=== PATIENT | male | born 1945 | race Hispanic/Latino ===

== ENCOUNTER 2018-05-16 09:13 | Day surgery (SDC) | payer MEDICARE ==
[2018-05-16] MEDS ORDERED: DIPRIVAN 10 MG/ML IV ONE ×3 (09:56)
[2018-05-16] MEDS ORDERED: NACL 0.9% 1000 ML 1,000 ML IV SCH (10:00)
[2018-05-16] MEDS ORDERED: WATER FOR IRRIG STERILE IR ONE (10:18)
--- NOTE | 2018-05-16 11:08 | Procedure Note ---
Date of procedure: 05/16/18 Pre-op diagnosis: GERD/ H/O Colon Polyps Post-op diagnosis: other (Duodenal Ulcer/ Duodenitis/Duoenal Erosion/Gastritis/ Esophagitis/ Proximal Colon Growth/ Transverse Colon Polyp (removed by snare excision)/ Moderate, Left Colon diverticular disease/ Minor,Internal Hemorrhoid) Procedure: EGD with Biopsy/ Colonoscopy with Snare Excision with Cold biopsy and Shelli Ink Injection (3 cc) Anesthesia: MAC Surgeon: ANTHONY ALDRICH Estimated blood loss: minimal Pathology: list Specimen disposition: to lab Condition: stable Disposition: same day (Treat with PPI. Avoid aspirin and NSAID. Check labs for CEA, Vitamin B12 and Folate. follow up in 1 to 2 weeks ([phone]).)
[2018-05-16 11:36] VITALS: BP 151/70
--- NOTE | 2018-05-16 12:30 | Operative Report ---
PROCEDURE: EGD with biopsy INDICATIONS: A 72-year-old white male with a prior history of anemia, which appears to be improved at present. EGD was done because he has been having some GERD symptoms to assess for the severity of his esophagitis and to check for any associated upper GI pathology. DESCRIPTION OF PROCEDURE: Procedure was done after getting informed consent with MAC anesthesia. Instrument was passed through the hypopharynx into the esophagus, which showed mild to moderate distal erosive esophagitis. Biopsy was done from the distal esophagus. Stomach showed gastritis. Biopsy was done from the gastric body antrum as well as the angle incisura for H. pylori and from the gastric body for atrophic gastritis. The pylorus was patent. The duodenum and the bulb showed a small duodenal ulcer as well as duodenitis and duodenal erosion. There was minimal bleeding from the biopsy sites and no complications associated with the procedure. ASSESSMENT: Gastroesophageal reflux disease symptoms, mild to moderate distal erosive esophagitis, gastritis, duodenal ulcer, duodenitis, duodenal erosion. Plan is treat the patient with PPI, have the patient avoid aspirin and aspirin-related products for the next few days and have the patient follow up in the office in 1-2 weeks' time. Vitamin B12 and folate level will also be done. RN, Breana Michelle was in the room throughout the entirety of the procedure since the patient also has a prior history of colon polyp. Colonoscopy will also be done for further assessment during this hospital visit. JOB# [id number] JOSE/MAURI
--- NOTE | 2018-05-16 12:41 | Operative Report ---
PROCEDURE: Colonoscopy with snare polypectomy and biopsy as well as Shelli ink injection of 3 mL done in the patient by the name of the patient. INDICATIONS: This is a 72-year-old white male with a prior history of anemia, who had an EGD done that showed presence of a small duodenal ulcer as well as duodenitis and duodenal erosion with associated gastritis and [id number] distal erosive esophagitis. Colonoscopy was done since the patient had a prior history of colon polyp to make sure that there was not any recurrence of any polyps. DESCRIPTION OF PROCEDURE: Procedure was done after getting informed consent with MAC anesthesia. Initial rectal exam was unremarkable. Instrument was passed through the rectum onto the cecum, which was identified with ileocecal valve and the appendiceal orifice. Visualization was fair to good. In the proximal colon slightly distal to the cecum there was growth noted in that area. Photodocumentation biopsies were also obtained and 3 mL of Shelli ink was injected to localize that spot in the colon, a little proximal and distal to the growth. The remaining part of the proximal colon and transverse colon showed normal mucosa. Moderate left colon diverticular disease was noted. In the transverse colon and the mid transverse colon there was a 10 mm polyp noted on a stalk that was removed by snare excision and retrieved. The remaining part of the transverse colon other than for that solitary polyp in the mid transverse colon did not show any other significant pathology. There was moderate left colon diverticular disease and mild internal hemorrhoids noted in the rectum on the retroverted view. There was minimal bleeding from the polypectomy site and the biopsy sites and no complications associated with the procedure. ASSESSMENT: 1. Prior history of colon polyp. 2. Transverse colon polyp on a stalk that was snare excised. 3. Proximal colon growth biopsy done to rule out for any neoplastic lesion. 4. Moderate left colon diverticular disease. 5. Minor internal hemorrhoids. Again, there was minimal bleeding from the biopsy sites and polypectomy site. No complications associated with the procedure. The patient will be asked to avoid aspirin and aspirin-related products for the next few days and follow up in the office in 1-2 weeks' time. He will be encouraged to take fiber supplements and also treated with PPI because of the upper GI findings duodenal ulcer and duodenitis. Await for the biopsy results. He will have a CEA level as a tumor marker as well as vitamin B12 and folate done. May require a CT scan of the abdomen and pelvis to be done as an outpatient and based on the biopsies may require referral to a colorectal surgeon. JOB# [id number] JOSE/MAURI
== END 2018-05-16 09:14 | disposition home or self-care (01) ==
LOC: GIO 09:13
DX: Z12.11 Encounter for screening for malignant neoplasm of colon (principal); D12.3 Benign neoplasm of transverse colon; K29.50 Unspecified chronic gastritis without bleeding; K57.30 Diverticulosis of large intestine without perforation or abscess without bleeding; K63.5 Polyp of colon; K64.8 Other hemorrhoids; K21.0 Gastro-esophageal reflux disease with esophagitis; E11.39 Type 2 diabetes mellitus with other diabetic ophthalmic complication; H42 Glaucoma in diseases classified elsewhere; I10 Essential (primary) hypertension; I25.10 Atherosclerotic heart disease of native coronary artery without angina pectoris; E78.00 Pure hypercholesterolemia, unspecified; M19.90 Unspecified osteoarthritis, unspecified site; Z72.89 Other problems related to lifestyle; Z98.890 Other specified postprocedural states; Z83.3 Family history of diabetes mellitus; Z88.0 Allergy status to penicillin; Z79.899 Other long term (current) drug therapy; Z79.82 Long term (current) use of aspirin; Z79.84 Long term (current) use of oral hypoglycemic drugs; Z98.49 Cataract extraction status, unspecified eye; Z95.5 Presence of coronary angioplasty implant and graft; Z82.49 Family history of ischemic heart disease and other diseases of the circulatory system; Z82.5 Family history of asthma and other chronic lower respiratory diseases; Z79.01 Long term (current) use of anticoagulants; R79.89 Other specified abnormal findings of blood chemistry
CPT/HCPCS: 36415; 43239; 45381; 45385; 82378; 82607; 82747; 82962; 88305; 88342; J2704; J7030